=== PATIENT | male | born 1980 | race Two or more races ===

== ENCOUNTER 2021-02-03 15:24 | Emergency (ER) | payer OTHER ==
[2021-02-03] MEDS ORDERED: CEPHALEXIN500 M1 PO (19:11)
== END 2021-02-03 19:24 | disposition home or self-care (01) ==
LOC: FER 15:24
DX: S62.630B Displaced fracture of distal phalanx of right index finger, initial encounter for open fracture (principal); E11.9 Type 2 diabetes mellitus without complications; W23.1XXA Caught, crushed, jammed, or pinched between stationary objects, initial encounter; Y92.69 Other specified industrial and construction area as the place of occurrence of the external cause; Y99.0 Civilian activity done for income or pay
CPT/HCPCS: 73130